=== PATIENT | male | born 1980 ===

== ENCOUNTER 2020-05-03 20:33 | Inpatient (IN) | payer OTHER ==
[~2020-05-03] VITALS: Ht 167.6 cm; Wt 86.4 kg
[2020-05-03 21:37] LABS: BASOPHILS 0.4 % (0-2); EOSINOPHILS 5.7 % (0-7); HEMATOCRIT 47.6 % (42.0-54.0); HEMOGLOBIN 15.9 g/dL (13.5-17.5); IMMATURE GRANULOCYTES 0.3 % (0-5); LYMPHOCYTES 29.7 % (15-50); MCH 32.9 pg (26.0-34.0); MCHC 33.4 g/dL (31.0-37.0); MCV 98.6 fL (80.0-100.0); MEAN PLATELET VOLUME 9.2 fL (7.4-10.4); MONOCYTES 5.4 % (2-11); NEUTROPHILS 58.5 % (40-80); PLATELET COUNT 345 10x3/uL (130-400); RBC 4.83 10x6/uL (4.20-6.10); RDW 14.6 % (11.5-14.5); WBC 9.5 10x3/uL (4.8-10.8)
[2020-05-03 21:41] LABS: APTT 30.1 SECONDS (22.8-39.4); INR 1.24 (0.85-1.17); PROTIME 15.5 SECONDS (11.6-15.0)
[2020-05-03 21:42] LABS: D-DIMER-QUANTITATIVE 0.95 ug/mLFEU (0.20-0.54)
[2020-05-03 21:44] LABS: CALC OSMOLALITY 274 mosm/kg (275-300); CALCIUM 8.4 mg/dL (8.5-10.1); CHLORIDE - SERUM 105 mmol/L (98-107); CREATININE - SERUM 1.1 mg/dL (0.6-1.3); GLUCOSE 126 mg/dL (74-106); POTASSIUM - SERUM 3.8 mmol/L (3.5-5.1); SODIUM 136 mmol/L (136-145); UREA NITROGEN 14 mg/dL (7-18); eGFR NON AFRICAN AMERICAN 80 mL/min (90-120)
[2020-05-03 21:59] LABS: ALBUMIN 3.6 g/dL (3.4-5.0); ALKALINE PHOSPHATASE 184 U/L (30-120); ALT (SGPT) 39 U/L (10-68); C-REACTIVE PROTEIN 1.5 mg/dL (0.0-0.9); MAGNESIUM - SERUM 2.1 mg/dL (1.8-2.4); PRO BNP 8726 pg/mL (0-125); PROTEIN - SERUM 7.8 g/dL (6.4-8.2); THYROID STIMULATING HORMONE 4.57 uIU/mL (0.36-3.74); TROPONIN-I 0.027 ng/mL (0.000-0.060)
[2020-05-03 22:06] VITALS: BP 144/111
--- NOTE | 2020-05-03 22:53 | NUR ---
IV ESTABLISHED 20 GA LEFT FA
--- NOTE | 2020-05-04 00:48 | NUR ---
ULTRASOUND AT BEDSIDE
[2020-05-04 01:00] VITALS: BP 146/111
[2020-05-04 02:00] VITALS: BP 148/97
--- NOTE | 2020-05-04 02:34 | NUR ---
PT C/O FEELING HOT AND NECK PAIN PT ATTEMPTED TO GET UP TO GO TO BATHROOM AND BECAME DIAPHOTIC AND CLAMMY PT PLACED ON NON REBREATHER, EKG, CHEST X RAY AND ABG DONE. PT AT BEDSIDE.
--- NOTE | 2020-05-04 02:34 | NUR ---
NITRO OINTMENT TAKEN OFF PER JACINTO LAWLER
[2020-05-04 03:00] VITALS: BP 106/80
[2020-05-04 04:00] VITALS: BP 125/92
[2020-05-04 05:00] VITALS: BP 139/92
[2020-05-04 05:35] VITALS: BP 125/92
[2020-05-04 05:50] LABS: BASOPHILS 0.2 % (0-2); EOSINOPHILS 0.2 % (0-7); HEMATOCRIT 45.1 % (42.0-54.0); HEMOGLOBIN 14.9 g/dL (13.5-17.5); IMMATURE GRANULOCYTES 0.2 % (0-5); LYMPHOCYTES 4.5 % (15-50); MCH 32.7 pg (26.0-34.0); MCV 99.1 fL (80.0-100.0); MEAN PLATELET VOLUME 9.3 fL (7.4-10.4); MONOCYTES 1.8 % (2-11); NEUTROPHILS 93.1 % (40-80); PLATELET COUNT 298 10x3/uL (130-400); RBC 4.55 10x6/uL (4.20-6.10); RDW 14.6 % (11.5-14.5)
[2020-05-04 06:06] LABS: APTT 28.8 SECONDS (22.8-39.4); INR 1.37 (0.85-1.17); PROTIME 16.7 SECONDS (11.6-15.0)
[2020-05-04 06:13] LABS: WBC 12.2 10x3/uL (4.8-10.8)
[2020-05-04 06:25] LABS: C-REACTIVE PROTEIN 1.9 mg/dL (0.0-0.9); CALC OSMOLALITY 276 mosm/kg (275-300); CALCIUM 8.1 mg/dL (8.5-10.1); CARBON DIOXIDE 21.8 mmol/L (21.0-32.0); CHLORIDE - SERUM 105 mmol/L (98-107); CKMB 1.6 U/L (0.0-3.6); CREATINE KINASE 67 UL (21-232); FERRITIN 95 ng/mL (3-244); GLUCOSE 151 mg/dL (74-106); MAGNESIUM - SERUM 2.1 mg/dL (1.8-2.4); PHOSPHOROUS 2.6 mg/dL (2.5-4.9); PRO BNP 7459 pg/mL (0-125); SODIUM 136 mmol/L (136-145); TROPONIN-I 0.027 ng/mL (0.000-0.060); UREA NITROGEN 17 mg/dL (7-18); eGFR NON AFRICAN AMERICAN 89 mL/min (90-120)
[2020-05-04 06:27] LABS: POTASSIUM - SERUM 4.5 mmol/L (3.5-5.1)
[2020-05-04 07:48] VITALS: Ht 167.6 cm; Wt 86.4 kg
[2020-05-04 08:09] LABS: CHOL - HDL RATIO 6.7 ratio (2.3-4.9); LDL-HDL RATIO 5.3 ratio (1.5-3.5)
[2020-05-04 08:43] LABS: ERYTHROCYTE SEDIMENTATION RATE 4 mm/hr (0-15)
--- NOTE | 2020-05-04 11:35 | NUR ---
DC'D DOBUTAMINE GTT AND BUMEX GTT PRIOR TO PT. LEAVING.
--- NOTE | 2020-05-04 13:23 | MORECARE ---
CASE MANAGEMENT DISCHARGE SUMMARY PATIENT: MATT SOARES UNIT: [id number] ADM DATE: 05/03/20 AGE: 39 : [birth year] SEX: M ROOM/BED: D.E09 AUTHOR: NAJMA HUBER PHYSICIAN: REFERRING PHYSICIAN: BEVERLEY MENDOZA MD DATE OF SERVICE: 05/04/20 Discharge Plan Patient Name: MATT SOARES Facility: [facility]:[place] : 1980 Planned Disposition: Left Against Medical Advice Anticipated Discharge Date: 05/04/20 Discharge Date: Expected LOS: 1 Initial Reviewer: [email or web address] Initial Review Date: 05/04/2020 Generated: 05/04/20 2:23 pm Patient Name: MATT SOARES Page [id number] at 1323 All edits/amendments must be made on the electronic document DICTATION DATE: 05/04/20 1323 CARDIAC/VASCULAR SONOGRAPHER: CHETAN 05/04/20 1323 RPT#: [id number] DC DATE: STATUS: ADM IN [facility] [address] [place] [address] END OF REPORT
--- NOTE | 2020-05-04 13:32 | MORECARE ---
CASE MANAGEMENT DISCHARGE SUMMARY PATIENT: MATT SOARES UNIT: [id number] ADM DATE: 05/03/20 AGE: 39 : [birth year] SEX: M ROOM/BED: D.E09 AUTHOR: NAJMA HUBER PHYSICIAN: REFERRING PHYSICIAN: BEVERLEY SANDERSON MD DATE OF SERVICE: 05/04/20 Discharge Plan Patient Name: MATT SOARES Facility: [facility]:[place] : 1980 Planned Disposition: Left Against Medical Advice Anticipated Discharge Date: 05/04/20 Discharge Date: Expected LOS: 1 Initial Reviewer: [email or web address] Initial Review Date: 05/04/2020 Generated: 05/04/20 2:32 pm Comments DCP- Discharge Planning Updated by [email or web address]: Sveta Gross on 05/04/20 12:[address] Late entry: 10:15 CM informed by Rosmery that the patient is requesting transfer to [facility] in [place]. CM met with madi and his to discuss request for transfer. Patient states he wants to transfer to [place] so he will be closer to his family. CM informed patient and spouse that this would be considered a lateral transfer and patient would be responsible for cost of ambulance to transport him to [facility]. Patient and spouse verbalized understanding and asked CM to get estimated cost of ambulance. 10:25 CM called [employer]. Spoke with Mireya and obtained quote of $2400. Patient would need to pay $1200 up front before transport. May pay over the phone with credit card. CM informed patient and . requested for CM to proceed with initiating request for transfer to [facility]. 10:45 CM Called [facility] spoke with their Medical continuous mining operator. CM was instructed to have Dr. Sanderson call Dr. Reza at the [facility] ([phone]) for the doc to doc. CM called and relayed information to Dr. Sanderson. He will call Dr. Reza for doc to doc. 11:15 CM received call from Emmett, ER nurse, stating that Dr. Sanderson informed him that the [facility] has declined to accept patient. 12:10 CM followed up with Emmett, ER nurse, to see if patient wanted CM to attempt transfer to another hospital. Emmett informed CM that patient left AMA. Last DP export: 05/04/20 12:23 p Patient Name: MATT SOARES Page [id number] at 1332 All edits/amendments must be made on the electronic document DICTATION DATE: 05/04/201331 NEON GLASS BENDER: CHETAN 05/04/201331 RPT#: [id number] DC DATE: STATUS: ADM IN [facility] [address] [place] [address] END OF REPORT
--- NOTE | 2020-05-05 09:08 | EC ---
PATIENT:MATT SOARES DATE OF SERVICE: 05/03/20 SEX: M MEDICAL RECORD: [id number] DATE OF : [birth year] LOCATION:[place] [address] AGE OF PATIENT: 39 ADMISSION DATE: 05/03/20 REFERRING PHYSICIAN: INTERPRETING PHYSICIAN: OSMAN SAVAGE MD ECHOCARDIOGRAM REPORT ECHO CHARGES 4 ECHO COMPLETE Date: 05/04/20 CLINICAL DIAGNOSIS: SOB/PE/ASSESS FOR CLOTS/CARDIO MYOPATHY ECHOCARDIOGRAPHIC MEASUREMENTS (adult normal given) AC root (d.<3.7cm) 3.3 cm LV Septum d (<1.2 cm> 0.9 cm Valve Excursion 1.3 cm LV Septum (systole) 1.0 cm Left Atria (s.<4.0cm> 4.8 cm LVPW d(<1.2cm) 1.1 cm RV (d.<2.3cm) 4.5 cm LVPW (sytole) 1.2 cm LV diastole(<5.6CM) 7.1 cm MV E-F(>70mm/sec) cm LV systole 6.4 cm LVOT Diameter 1.9 cm MV exc.(>10mm) cm Est.ejection fraction (50-75%) % DOPPLER: LVIT cm/sec A 26.0 cm/sec E 80.0 cm/sec LA cm/sec RVSP 66 mmHg LVOT 57 cm/sec AOP1/2T m/s Asc. Ao 90 cm/sec RVOT 45 cm/sec RA cm/sec PA 76 cm/sec AV Gradient Peak 2.56 mmHg AV Mean 1.41 mmHg AV Area 2.1 cm MV Gradient Peak 5.12 mmHg MV Mean 1.03 mmHg MV Area cm COMMENTS: Monomer Purification Operator: 2 MAGDY SHAVER Cracking And Fanning Machine Operator: 3 Dr. Moreira TAPE# PACS Pericardial Effusion N DATE OF SERVICE: 05/04/2020 Adequate 2D, color flow imaging, spectral Doppler, and M-Mode. No LVH. LV internal dimensions are dilated. 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 Aortic valve is tricuspid with good valve excursion and no significant AI. Left atrium likewise is dilated at 4.8 cm. Mitral valve is thickened. Mild plus MR. Right-sided chambers likewise are dilated. Moderate to severe TR. RV systolic pressure is estimated greater or equal to 66 mmHg via the continuity equation. ECHOCARDIOGRAM REPORT [id number] MATT SOARES TRANSINT:[id number] Voice Confirmation ID: [id number] DOCUMENT ID: [id number] OSMAN SAVAGE MD at 0908 CC: [id number] DICTATION DATE: 05/04/20 1654 ASSISTANT GOLF COURSE SUPERINTENDENT: 05/05/20 0013 DIS IN 05/04/20 [place] [id number] [place] [id number]
--- NOTE | 2020-05-05 09:27 | MORECARE ---
CASE MANAGEMENT DISCHARGE SUMMARY PATIENT: MATT SOARES UNIT: [id number] ADM DATE: 05/03/20 AGE: 39 : 84 SEX: M ROOM/BED: D.E09 AUTHOR: NAJMA HUBER PHYSICIAN: REFERRING PHYSICIAN: BEVERLEY SANDERSON MD DATE OF SERVICE: 05/05/20 Discharge Plan Patient Name: MATT SOARES Facility: [facility]:[place] : 1980 Planned Disposition: Left Against Medical Advice Anticipated Discharge Date: 05/04/20 Discharge Date: 05/04/2020 Expected LOS: 1 Initial Reviewer: [email or web address] Initial Review Date: 05/04/2020 Generated: 05/05/20 10:26 am Comments DCP- Discharge Planning Updated by [email or web address]: Sveta Gross on 05/04/20 12:[address] Late entry: 10:15 CM informed by Rosmery that the patient is requesting transfer to [facility] in [place]. CM met with madi and his to discuss request for transfer. Patient states he wants to transfer to [place] so he will be closer to his family. CM informed patient and spouse that this would be considered a lateral transfer and patient would be responsible for cost of ambulance to transport him to [facility]. Patient and spouse verbalized understanding and asked CM to get estimated cost of ambulance. 10:25 CM called [employer]. Spoke with Mireya and obtained quote of $2400. Patient would need to pay $1200 up front before transport. May pay over the phone with credit card. CM informed patient and . requested for CM to proceed with initiating request for transfer to [facility]. 10:45 CM Called [facility] spoke with their Medical chief hydroelectric station operator. CM was instructed to have Dr. Sanderson call Dr. Reza at the [facility] ([phone]) for the doc to doc. CM called and relayed information to Dr. Sanderson. He will call Dr. Reza for doc to doc. 11:15 CM received call from Emmett, ER nurse, stating that Dr. Sanderson informed him that the [facility] has declined to accept patient. 12:10 CM followed up with Emmett, ER nurse, to see if patient wanted CM to attempt transfer to another hospital. Emmett informed CM that patient left AMA. Last DP export: 05/04/20 12:32 p Patient Name: MATT SOARES Page [phone] at 0927 All edits/amendments must be made on the electronic document DICTATION DATE: 05/05/20926 AIRDROP SYSTEMS TECHNICIAN: CHETAN 05/05/20926 RPT#: [id number] DC DATE:05/04/20 STATUS: DIS IN [facility] [address] [place] [address] END OF REPORT
== END 2020-05-04 14:23 | disposition left against medical advice (07) | DRG 175 ==
LOC: D.ER 20:33 → D.EDHOLD 23:12
PROVIDERS: Family Medicine; Internal Medicine Interventional Cardiology; ADMIT Family Medicine Adult Medicine; ATTEND Family Medicine Adult Medicine
DX: I26.99 Other pulmonary embolism without acute cor pulmonale (principal); J96.01 Acute respiratory failure with hypoxia; I50.21 Acute systolic (congestive) heart failure; F17.203 Nicotine dependence unspecified, with withdrawal; I42.0 Dilated cardiomyopathy; I11.0 Hypertensive heart disease with heart failure; E83.31 Familial hypophosphatemia; M90.80 Osteopathy in diseases classified elsewhere, unspecified site; I10 Essential (primary) hypertension; E78.5 Hyperlipidemia, unspecified; F10.20 Alcohol dependence, uncomplicated